=== PATIENT | female | born 1995 | race African-American/Black ===

== ENCOUNTER 2017-03-24 14:53 | Inpatient (IN) ==
[2017-03-24] MEDS ORDERED: MEPERIDINE 50 MG/1 ML VIAL IV PRN (15:06)
[2017-03-24] MEDS ORDERED: ONDANSETRON 4 MG/2 ML VIAL IV PRN (15:06)
[2017-03-24] MEDS ORDERED: DINOPROSTONE VAG GEL 10 MG SYRINGE VAG ONE (15:15)
[2017-03-24] MEDS: LACTATED RINGERS 1,000 ML IV SCH (15:25)
[2017-03-24] MEDS ORDERED: PROMETHAZINE 25 MG/1 ML VIAL IM PRN (15:27)
[2017-03-24 16:19] LABS: Basophils % 0.2 % (0.0-0.8); Eosinophils % 0.5 % (0.00-10.9); Hematocrit 36.6 VOL% (35.7-47.0); Hemoglobin 12.7 GM/DL (12.0-16.0); Immature Granulocytes % 2.5 %; Lymphocytes # 1.4 10*3/uL (1.4-4.0); Lymphocytes % 17.3 % (21.3-54.2); Mean Corpuscular HGB Conc 34.7 GM/DL (32-36); Mean Corpuscular Hemoglobin 28 PG (27-34); Mean Corpuscular Volume 80.1 FL (87-102); Mean Platelet Volume 12.2 FL (9.6-12.0); Monocytes # 0.6 10*3/uL (0.11-0.8); Monocytes % 7.2 % (1.7-12.7); Neutrophils # 5.9 10*3/uL (1.4-7.4); Neutrophils % 72.3 % (38.7-73.9); Platelet Count 234 T/CUMM (130-400); Red Blood Count 4.57 MC/CUMM (3.8-5.5); Red Cell Distribution Width 15.5 % (9.3-17.3); White Blood Count 8.2 T/CUMM (4-12)
[2017-03-24 16:34] LABS: PT Patient Result 10.2 SECS; Partial Thromboplastin Time 27.5 SECS (0-40)
[2017-03-24 16:51] LABS: Alanine Aminotransferase 19 U/L (13-56); Alkaline Phosphatase 157 U/L (45-117); Aspartate Amino Transferase 16 U/L (0-37); Bilirubin,Total < 0.39 MG/DL (0.2-1.0); Blood Urea Nitrogen 5 MG/DL (7-18); Calcium 8.9 MG/DL (8.5-10.1); Glucose 147 MG/DL (74-106); Osmolality,Calculated 274.7 MOS/KG (273-304); Potassium 3.9 MMOL/L (3.5-5.1); Sodium 138 MMOL/L (136-145); Total Protein 6.6 G/DL (6.4-8.3)
--- NOTE | 2017-03-24 17:24 | OB/GYN History & Physical ---
History of Present Illness Chief complaint: In for elective induction of labor due to term . History of present illness: Ms. Sparks is a 22 year old female who presented for elective induction of labor due to term . Her ZO is 03/30/2017 for an estimated gestational age of 39 weeks. The patient is a primigravida. She received her care at the [facility], she received routine care throughout and her course was uneventful. The risk and benefits of been thoroughly discussed with this patient and significant other, plan of care has been discussed with Dr. Jiang and all parties are in agreement with plan of care. labs: She is a positive, RPR is nonreactive, hepatitis B negative, HIV negative, rubella is immune, GBS culture is positive. Review of systems is negative with exception of above. Home Medications Medication Instructions Recorded Confirmed Type Labetalol Tab [Trandate Tab] 100 mg PO BID 01/01/17 03/24/17 History Hydrocodone/Acetaminophen [[place] 1 each PO Q6HR PRN #20 tablet 02/12/17 Rx 10-325 Tablet] Allergies Allergy/AdvReac Type Severity Reaction Status Date / Time latex Allergy HIVES Verified 03/24/17 15:05 ondansetron Allergy HIVES Verified 03/24/17 15:05 [From Zofran (as hydrochloride)] 12 point system: reviewed and no additional remarkable complaints except as stated Medical,Surgical,& Family Hx - Medical History Cardio: History of: Hypertension (labetalol 100mg bid) Rheumatology: No history of;: Psoriasis - Surgical History Abdominal Surgeries: Surgical HX of: Cholecystectomy Orthopedic Surgeries: Surgical HX of;: Orthopedic Surgery (ACL Repair) - Family History Family History: Reports;: Family Cancer (mgf prostate), Family Diabetes (parents ), Family Hypertension (mother mgf) Denies;: Family Anesthesia Reaction, Family Hematology, Family Psychiatric Problems - Social History Smoking Status: Former smoker Have you smoked in the last 12 months: Yes (Patient states she quit when she found out she was .) Frequency of Alcohol Use: None Type of Drug Use: None Marital Status: Single Lives With:: Significant Other Functional capacity: independent ambulation Exam [employer] - Constitutional General appearance: no acute distress - Antepartum / Post Antepartum Exam Cervix - Dilatation: 1 cm Effacement: 60% Station: -2 Rupture: Intact Presentation: Vertex Heart Rate: 140s Breast: bilateral: normal Abdomen obstetrics: Present: bowel sounds normal Vagina: Present: normal moisture Uterus exam: Present: enlarged Anus/Rectum: Present: normal perianal skin - Respiratory Respiratory exam: Present: clear to auscultation bilaterally - Cardiovascular Cardiovascular exam: Present: regular rate and rhythm - GI/Abdominal GI/Abdominal exam: Present: normal bowel sounds - Extremities Exam Extremities exam: Present: normal inspection - Neurological Exam Neurological exam: Present: alert, oriented X3 - Psychiatric Psychiatric exam: Present: normal affect, normal mood - Skin Skin exam: Present: normal color, warm Assessment and Plan (1) Term Status: Acute Assessment and plan: Admit Prostin gel per protocol IV Pitocin per protocol if indicated Artificial rupture membranes when appropriate Epidural anesthesia if desired Internal monitors if indicated IV antibiotics prophylactically for positive GBS Anticipate Current Visit: Yes Results - Labs CBC & BMP: 03/24/17 15:48 03/24/17 15:48
[2017-03-24 22:25] LABS: HIV Antigen/Antibody Result Nonreactive (Nonreactive)
[2017-03-25] MEDS: AMPICILLIN INJ 2,000 MG in SODIUM CHLORIDE 0.9% 100 ML IV SCH ×3 (01:59→09:03)
[2017-03-25] MEDS ORDERED: OXYTOCIN/LR 20 UNIT/1,000 ML BAG IV SCH (02:00)
[2017-03-25] MEDS: AMPICILLIN INJ 1,000 MG in SODIUM CHLORIDE 0.9% 100 ML IV SCH ×3 (06:03→14:03)
[2017-03-25] MEDS: LACTATED RINGERS 1,000 ML IV SCH ×3 (07:42→17:43)
[2017-03-25] MEDS: LABETALOL 100 MG TABLET PO SCH ×2 (09:26→21:29)
--- NOTE | 2017-03-25 09:52 | Event Note ---
905: AROM performed with clear fluid noted. The patient is 2-3 cm dilated/60% effaced/vertex presenting at a -2 station. An IUPC was inserted without difficulty and patient is stable.
[2017-03-25] MEDS: BUTORPHANOL 2 MG/ML VIAL IV PRN ×2 (10:40→15:47)
[2017-03-25] MEDS ORDERED: PHENYLEPHRINE 1 MG/10 ML SYRINGE IV ONE (12:00)
[2017-03-25] MEDS ORDERED: diphenhydrAMINE 50 MG/1 ML VIAL IV PRN (15:02)
[2017-03-25] MEDS ORDERED: CITRIC ACID/SODIUM CITRATE 30 ML UDCUP PO PRN (15:02)
[2017-03-25] MEDS ORDERED: FAMOTIDINE 20 MG/2 ML VIAL IV PRN (15:02)
[2017-03-25] MEDS ORDERED: fentaNYL 2 MCG/ROPIV 0.2% EPID 150 ML EPIDURAL PRN (15:02)
[2017-03-25] MEDS ORDERED: ePHEDrine 50 MG/ML AMP IV PRN (15:02)
[2017-03-25] MEDS ORDERED: miSOPROStol 200 MCG TABLET ONE (15:20)
[2017-03-25] MEDS ORDERED: LIDOCAINE 1% 50 ML VIAL ONE (15:20)
[2017-03-25] MEDS ORDERED: ceFAZolin 2,000 MG in PREMIX 1 EACH IV ONE (16:21)
[2017-03-25] MEDS ORDERED: OXYTOCIN/LR 30 UNIT/1,000 ML BAG IV PRN (16:22)
[2017-03-25] MEDS ORDERED: OXYTOCIN 10 UNIT/ML VIAL IM PRN (16:22)
--- NOTE | 2017-03-25 18:16 | Operative Note ---
Date of procedure: 03/25/17 Procedure: Preoperative diagnosis: Failure to progress Postoperative diagnosis: Same Anesthesia:[] Regional anesthesia Estimated blood loss: [] 300 cc Surgeon: Dr. Jiang Findings: [] Female , delivery time is 1748, Apgars of 8 at 1 minute 9 at 5 minute, blood loss was 300 cc, cord gas was obtained Complications: None Procedure: Low transverse section The patient was taken to the operating suite heart tones were obtained prior to and after regional anesthesia was obtained. She was placed in supine position her abdomen was prepped and draped in usual manner for major abdominal surgery. Through an abdominal incision the skin, subcutaneous, fascial layer and peritoneal the abdomen was entered. The bladder flap was created and a low transverse incision was made.. Fluid was clear and normal amount X, Apgars, the placenta was delivered and sent to lab for further evaluation. Injected with intrauterine Pitocin. The first layer of the uterus was closed with #1 Vicryl in a continuous locking manner. Close to imbricate the first layer with #1 Vicryl. The peritoneum was approximated with #2-0 Vicryl.[] All the last sponges and instruments were accounted for -2.) #2-0 Vicryl. Fascia was approximated with #0-0 Maxon.. The skin was approximated with keegan. She tolerated procedure well and was taken to recovery room in stable condition. There was a noted true knot in the umbilical cord. Surgeon / Physician: Rayshawn Jiang Results - Labs CBC & BMP: 03/24/17 15:48 03/24/17 15:48 Discharge Plan - Discharge Medications No Action Hydrocodone/Acetaminophen [[place] 10-325 Tablet] 1 each PO Q6HR PRN #20 tablet PRN Reason: Pain Labetalol Tab [Trandate Tab] 100 mg PO BID - Follow Up or Referral - Forms/Instructions
[2017-03-25] MEDS ORDERED: MAGNESIUM HYDROXIDE SUSP 30 ML UDCUP PO PRN (18:17)
[2017-03-25] MEDS ORDERED: ACETAMINOPHEN 325 MG TABLET PO PRN (18:17)
[2017-03-25] MEDS ORDERED: OXYTOCIN/LR 20 UNIT/1,000 ML BAG IV ONE (18:17)
[2017-03-25] MEDS ORDERED: RHO(D) IMMUNE GLOBULIN 300 MCG SYRINGE IM ONE (18:17)
[2017-03-25] MEDS ORDERED: ONDANSETRON 4 MG/2 ML VIAL IV PRN ×2 (18:17→18:35)
[2017-03-25] MEDS ORDERED: MORPHINE 10 MG/10 ML VIAL ONE (18:32)
[2017-03-25] MEDS ORDERED: fentaNYL 100 MCG/2 ML VIAL ONE (18:34)
[2017-03-25 18:40] LABS: Cord Venous Blood HCO3 22.1 MMOL/L; Cord Venous Blood PCO2 53.6 MMHG; Cord Venous Blood PO2 16.8
[2017-03-25 18:43] LABS: Cord Arterial Blood HCO3 21.9 MMOL/L
[2017-03-25 18:43] LABS: Apearance,Urine CLEAR (Clear); Bilirubin,Urine Negative (Negative); Blood, Urine Negative (Negative); Glucose,Urine (UA) Negative (Negative); Ketones,Urine 80 mg/dL (Negative); Nitrite,Urine Negative (Negative); Protein,Urine Negative; RBC,Urine <1 /HPF (0-4); Squamous Epithelial Cell,Urine Occasional /HPF (0-10); Urine Color Yellow (Yellow); Urine Specific Gravity 1.009 (1.001-1.035); Urine Urobilinogen < 2.0 EU/DL (0.2-1.0); WBC,Urine 3 /HPF (0-6)
[2017-03-26] MEDS: diphenhydrAMINE 50 MG/1 ML VIAL IV PRN ×2 (03:35→22:54)
[2017-03-26] MEDS: LACTATED RINGERS 1,000 ML IV SCH ×3 (05:43→07:27)
[2017-03-26] MEDS: IBUPROFEN 800 MG TABLET PO PRN ×2 (05:47→18:19)
[2017-03-26 06:07] LABS: Basophils % 0.2 % (0.0-0.8); Eosinophils % 0.2 % (0.00-10.9); Hematocrit 33.8 VOL% (35.7-47.0); Hemoglobin 11.5 GM/DL (12.0-16.0); Immature Granulocytes % 1.4 %; Immature Granulocytes Absolute 0.13 #; Lymphocytes # 1.4 10*3/uL (1.4-4.0); Lymphocytes % 15.1 % (21.3-54.2); Mean Corpuscular Hemoglobin 27 PG (27-34); Mean Corpuscular Volume 80.5 FL (87-102); Monocytes # 0.7 10*3/uL (0.11-0.8); Monocytes % 7.7 % (1.7-12.7); Neutrophils # 7.2 10*3/uL (1.4-7.4); Neutrophils % 75.4 % (38.7-73.9); Platelet Count 196 T/CUMM (130-400); Red Cell Distribution Width 15.6 % (9.3-17.3); White Blood Count 9.5 T/CUMM (4-12)
[2017-03-26] MEDS: DOCUSATE SODIUM 100 MG CAPSULE PO SCH ×3 (07:27→20:29)
[2017-03-26] MEDS ORDERED: hydrOXYzine HCL 25 MG/1 ML VIAL IM PRN (07:36)
[2017-03-26] MEDS ORDERED: hydrOXYzine HCL 50 MG/1 ML VIAL IM ONE (09:00)
[2017-03-26] MEDS: MULTIVITAMIN (PRENATAL) TABLET PO SCH (09:15)
--- NOTE | 2017-03-26 11:38 | Progress Note ---
Family Medicine PN Sub Interval history: day #1 Status post section secondary to failure to progress Lungs are clear, cardiac exam benign, abdomen is soft, incision sites intact and appropriately tender. Extremities well with no limits and neurologic grossly intact Assessment plan possible discharge in a.m. continue with present therapy Exam (Progress Note) - Constitutional Vitals: Period Temp Pulse Resp BP Sys/Mc Pulse Ox Last 24 Hr 97.0 F-97.7 F 59-80 18-20 110-140/66-84 Results - Labs CBC & BMP: 03/26/17 04:14 03/24/17 15:48 Quality Measures - VTE Contraindication to Pharmacological VTE Prophylaxis: Clinical assessment deems Pt at low risk, no prophalaxis needed
[2017-03-26] MEDS: SIMETHICONE CHEW 80 MG TABLET PO PRN (20:29)
[2017-03-27 08:04] VITALS: BP 140/76
[2017-03-27] MEDS: SIMETHICONE CHEW 80 MG TABLET PO PRN (08:40)
[2017-03-27] MEDS: DOCUSATE SODIUM 100 MG CAPSULE PO SCH (08:40)
[2017-03-27] MEDS: MULTIVITAMIN (PRENATAL) TABLET PO SCH (08:41)
[2017-03-27] MEDS: IBUPROFEN 800 MG TABLET PO PRN (08:41)
--- NOTE | 2017-03-30 14:18 | Pathology Report from [facility] ---
[employer] ACCESSION # : [id number] PATIENT NAME : Paige Morelos ORDERING DR : RAYRAY SALDANA MD CLINICAL HX: IUP @ 39.2 weeks - Failure to progress - Primary POST-OP DX: Same SPECIMEN INFO: Placenta GROSS DESCRIPTION: Received fresh labeled PAIGE MORELOS & PLACENTA is a 448 gm placenta measuring 20.0 x 14.09 x 2.5 cm. The membranes are pink douglass and translucent. The umbilical cord measures 23.5 cm, contains three vessels and is inserted 2.0 cm from the placenta margin. The surface is blue luis and intact. The maternal surface displays moderately disrupted hemorrhagic cotyledons with a few scattered calcifications seen. Sectioning reveals no gross abnormalities. Sections submitted A- membranes and cord, B- and maternal surfaces. DIAGNOSIS FOR PAIGE MORELOS: PLACENTA: Trivascular umbilical cord. Unremarkable membranes. Term placenta with increased syncytial clumping, subchorionic fibrin deposition, intervillous fibrin deposition and dystrophic calcification. COLLECTED DATE: 03/26/2017 [facility] REPORT DATE: 03/29/2017 ELECTRONICALLY SIGNED BY: Basim Steele III, M.D. 03/29/2017 - 10:20:38 [facility]
--- NOTE | 2017-05-02 04:41 | Discharge Summary ---
DATE OF ADMISSION: 03/24/2017 DATE OF DISCHARGE: 03/27/2017 Primary section with -induced hypertension also labor progressed delivered a viable female . Apgars were 9 at one minute and 9 at five minutes. Infant weight 7 pounds. There w as also noticeable true knot in the cord as well and three cord vessels. The patient and juan erated the procedure well. She remained in hospital for two postoperative days. Blood pressure naila ined under great control. Labetalol 100 mg p.o. b.i.d. was administered. Subsequently discharged in stable condition. Postoperative instructions were given. Incision site was intact. She will be fo llow up in our office in approximately two weeks for further postoperative care.
--- NOTE | 2017-05-02 04:47 | Discharge Summary ---
DATE OF ADMISSION: 03/24/2017 DATE OF DISCHARGE: 03/27/2017 This patient was admitted for induction of labor. Also, known history of -induced hypertens ion. She has delivered a viable infant.
== END 2017-03-27 13:00 | disposition home or self-care (01) | DRG 540 ==
LOC: N.LDOUT 14:53 → N.LD 14:54 → N.OB 03-26 14:01
PROVIDERS: ADMIT Obstetrics & Gynecology; ATTEND Obstetrics & Gynecology
PROC: LDCSECT (ICD-10-PCS; 2017-03-25 16:25)

== ENCOUNTER 2021-11-26 09:56 | Inpatient (IN) ==
[2021-11-26] MEDS ORDERED: FAMOTIDINE 20 MG/2 ML VIAL IV ONE (10:53)
[2021-11-26] MEDS ORDERED: CITRIC ACID/SODIUM CITRATE 30 ML UDCUP PO ONE (10:53)
[2021-11-26] MEDS ORDERED: ceFAZolin 3,000 MG in SYRINGE 1 EACH IV ONE (10:53)
[2021-11-26] MEDS ORDERED: OXYTOCIN 10 UNIT/ML VIAL IM ONE (10:55)
[2021-11-26] MEDS ORDERED: OXYTOCIN/LR 30 UNIT/1,000 ML BAG IV ONE (10:55)
[2021-11-26] MEDS ORDERED: OXYTOCIN/LR 20 UNIT/1,000 ML BAG IV ONE ×2 (10:55→18:00)
[2021-11-26] MEDS ORDERED: LACTATED RINGERS 1,000 ML IV SCH ×2 (11:00→18:30)
[2021-11-26 11:18] LABS: Basophils % 0.3 % (0.0-0.8); Eosinophils # 0.1 10*3/uL (0.0-0.87); Eosinophils % 0.9 % (0.00-10.9); Hematocrit 36.7 VOL% (35.7-47.0); Hemoglobin 12.2 GM/DL (12.0-16.0); Immature Granulocytes % 3.7 %; Immature Granulocytes Absolute 0.33 #; Lymphocytes # 1.5 10*3/uL (1.4-4.0); Lymphocytes % 16.6 % (21.3-54.2); Mean Corpuscular HGB Conc 33.2 GM/DL (32-36); Mean Corpuscular Volume 81.9 FL (87-102); Mean Platelet Volume 11.3 FL (9.6-12.0); Neutrophils % 71.5 % (38.7-73.9); Platelet Count 234 T/CUMM (130-400); Red Blood Count 4.48 MC/CUMM (3.8-5.5); Red Cell Distribution Width 15.9 % (9.3-17.3); White Blood Count 8.9 T/CUMM (4-12)
[2021-11-26 11:38] LABS: Lymphocytes 22 % (20-55); Segmented Neutrophils 74 % (50-85); Total Cells Counted 100
[2021-11-26 11:39] LABS: Platelet Estimate Adequate
[2021-11-26 11:49] LABS: Alanine Aminotransferase 20 U/L (13-56); Albumin 2.7 G/DL (3.4-5.0); Alkaline Phosphatase 139 U/L (45-117); Aspartate Amino Transferase 20 U/L (0-37); Bilirubin,Total < 0.39 MG/DL (0.20-1.00); Blood Urea Nitrogen 7 MG/DL (7-18); Calcium 9.2 MG/DL (8.5-10.1); Carbon Dioxide 22 MMOL/L (21-32); Estimated Glom Filtration Rate 223 ML/MIN; Glucose 103 MG/DL (74-106); Osmolality,Calculated 272.7 MOS/KG (273-304); Potassium 3.9 MMOL/L (3.5-5.1); Sodium 138 MMOL/L (136-145); Total Protein 7.4 G/DL (6.4-8.2)
[2021-11-26 12:10] LABS: Bilirubin,Direct < 0.100 MG/DL (0.0-0.20); Uric Acid 4.8 MG/DL (2.6-6.0)
[2021-11-26 12:27] LABS: PT Patient Result 10.9 SECS (10.5-12.0); Partial Thromboplastin Time 27.8 SECS (23.8-32.1)
[2021-11-26] MEDS ORDERED: miSOPROStoL 200 MCG TABLET ONE (14:11)
[2021-11-26] MEDS ORDERED: CARBOPROST TROMETHAMINE 250 MCG/ML AMP IM ONE (14:11)
[2021-11-26] MEDS ORDERED: METHYLERGONOVINE 0.2 MG/1 ML AMP ONE (14:11)
[2021-11-26] MEDS ORDERED: BUPIVACAINE SPINAL 0.75% 2 ML AMP SPINAL ONE (14:54)
[2021-11-26] MEDS ORDERED: ONDANSETRON 4 MG/2 ML VIAL ONE (15:36)
[2021-11-26] MEDS ORDERED: LACTATED RINGERS 1,000 ML IV ONE (16:04)
[2021-11-26] MEDS ORDERED: PHENYLEPHRINE 1 MG/10 ML SYRINGE IV ONE (16:42)
[2021-11-26] MEDS ORDERED: ACETAMINOPHEN INJ 1,000 MG/100 ML VIAL IV ONE (16:52)
[2021-11-26] MEDS ORDERED: KETOROLAC 30 MG/1 ML VIAL ONE (16:53)
[2021-11-26] MEDS ORDERED: DEXAMETHASONE 4 MG/1 ML VIAL ONE (16:54)
[2021-11-26] MEDS ORDERED: KETOROLAC 30 MG/1 ML VIAL IM PRN (16:58)
[2021-11-26 17:02] LABS: Cord Arterial Blood HCO3 12.9 MMOL/L
[2021-11-26] MEDS ORDERED: SODIUM CHLORIDE 0.9% 100 ML IV ONE (17:03)
[2021-11-26 17:05] LABS: Cord Venous Blood HCO3 13.9 MMOL/L; Cord Venous Blood PCO2 87.4 MMHG; Cord Venous Blood PO2 < 17
[2021-11-26 17:11] LABS: Bilirubin,Urine Negative (Negative); Blood, Urine Negative (Negative); Glucose,Urine (UA) Negative (Negative); Ketones,Urine 15 mg/dL (Negative); Nitrite,Urine Negative (Negative); Protein,Urine Negative (Negative); Urine Appearance Clear (Clear); Urine Color Yellow (Yellow); Urine Specific Gravity 1.025 (1.001-1.035); Urine Urobilinogen 0.2 eU/dL (<2.0); Urine pH 6.5 (4.5-8.0)
[2021-11-26 17:12] LABS: Mucus,Urine Occasional /LPF (Occasional); RBC,Urine <1 /HPF (0-4); Squamous Epithelial Cell,Urine Occasional /HPF (0-10)
[2021-11-26] MEDS ORDERED: ONDANSETRON 4 MG/2 ML VIAL IV PRN (17:45)
[2021-11-26] MEDS ORDERED: ACETAMINOPHEN 325 MG TABLET PO PRN (17:45)
[2021-11-26] MEDS ORDERED: RHO(D) IMMUNE GLOBULIN 300 MCG SYRINGE IM ONE (17:45)
[2021-11-26] MEDS ORDERED: MAGNESIUM HYDROXIDE SUSP 30 ML UDCUP PO PRN (17:45)
[2021-11-26] MEDS ORDERED: SIMETHICONE CHEW 80 MG TABLET PO PRN (17:45)
[2021-11-26] MEDS ORDERED: IBUPROFEN 800 MG TABLET PO PRN (17:50)
[2021-11-26 18:18] LABS: Protein/Creatinine Ratio,Urine 0.2 RATIO
[2021-11-26] MEDS ORDERED: diphenhydrAMINE 50 MG/1 ML VIAL IV ONE (19:41)
[2021-11-26] MEDS: DOCUSATE SODIUM 100 MG CAPSULE PO SCH (21:36)
[2021-11-27] MEDS ORDERED: KETOROLAC 30 MG/1 ML VIAL IV SCH (00:01)
[2021-11-27] MEDS ORDERED: ACETAMINOPHEN 500 MG TABLET PO SCH (00:01)
[2021-11-27] MEDS: KETOROLAC 30 MG/1 ML VIAL IV SCH ×3 (00:07→13:20)
[2021-11-27] MEDS: diphenhydrAMINE CAP 25 MG CAPSULE PO PRN ×2 (00:57→13:20)
[2021-11-27 01:41] LABS: Basophils % 0.2 % (0.0-0.8); Eosinophils % 0.3 % (0.00-10.9); Hematocrit 35.3 VOL% (35.7-47.0); Hemoglobin 11.9 GM/DL (12.0-16.0); Immature Granulocytes % 2.8 %; Immature Granulocytes Absolute 0.34 #; Lymphocytes # 1.3 10*3/uL (1.4-4.0); Lymphocytes % 10.9 % (21.3-54.2); Mean Corpuscular HGB Conc 33.7 GM/DL (32-36); Mean Corpuscular Volume 80.6 FL (87-102); Mean Platelet Volume 11.3 FL (9.6-12.0); Monocytes % 4.1 % (1.7-12.7); Neutrophils % 81.7 % (38.7-73.9); Platelet Count 243 T/CUMM (130-400); Red Blood Count 4.38 MC/CUMM (3.8-5.5); Red Cell Distribution Width 15.7 % (9.3-17.3); White Blood Count 12.2 T/CUMM (4-12)
[2021-11-27] MEDS: ACETAMINOPHEN 500 MG TABLET PO SCH ×3 (02:26→12:00)
[2021-11-27] MEDS: MULTIVITAMIN (PRENATAL) TABLET PO SCH (08:22)
[2021-11-27] MEDS: DOCUSATE SODIUM 100 MG CAPSULE PO SCH ×2 (08:23→20:16)
[2021-11-27 09:13] LABS: Basophils % 0.3 % (0.0-0.8); Eosinophils % 0.3 % (0.00-10.9); Hemoglobin 11.3 GM/DL (12.0-16.0); Immature Granulocytes % 2.7 %; Immature Granulocytes Absolute 0.35 #; Lymphocytes # 1.8 10*3/uL (1.4-4.0); Lymphocytes % 13.9 % (21.3-54.2); Mean Corpuscular HGB Conc 33.2 GM/DL (32-36); Mean Corpuscular Volume 81.3 FL (87-102); Mean Platelet Volume 11.1 FL (9.6-12.0); Monocytes % 7.7 % (1.7-12.7); Neutrophils % 75.1 % (38.7-73.9); Platelet Count 239 T/CUMM (130-400); Red Blood Count 4.18 MC/CUMM (3.8-5.5); Red Cell Distribution Width 15.9 % (9.3-17.3); White Blood Count 13.1 T/CUMM (4-12)
[2021-11-27] MEDS: FUROSEMIDE 40 MG/4 ML VIAL IV SCH ×2 (11:27→19:15)
[2021-11-27] MEDS ORDERED: FUROSEMIDE 40 MG/4 ML VIAL IV SCH (19:00)
[2021-11-27] MEDS ORDERED: FUROSEMIDE 20 MG TABLET PO ONE (19:17)
[2021-11-28] MEDS: DOCUSATE SODIUM 100 MG CAPSULE PO SCH (08:58)
[2021-11-28] MEDS: MULTIVITAMIN (PRENATAL) TABLET PO SCH (08:58)
[2021-11-28 11:22] VITALS: BP 134/87
== END 2021-11-28 13:20 | disposition home or self-care (01) | DRG 540 ==
LOC: N.LDOUT 09:56 → N.LD 10:08 → N.OB 22:35
PROVIDERS: ADMIT Obstetrics & Gynecology; ATTEND Obstetrics & Gynecology
PROC: LDCSECT (ICD-10-PCS; 2021-11-26 15:00)